=== PATIENT | female | born 1965 | race Caucasian/White ===

== ENCOUNTER → 2016-09-25 | Outpatient (CLI) | payer OTHER ==
--- NOTE | 2016-09-26 08:43 | MR ---
EXAMINATION TYPE: MR brain wo con DATE OF EXAM: 09/25/2016 7:09 PM COMPARISON: 06/06/2014 HISTORY: T1-weighted sagittal, T2, FLAIR, and diffusion axial, and T2 coronal coronal views of the brain are s ubmitted. There is no evidence of acute ischemia. The ventricles, basal cisterns, and sulci overlying the conv exities are consistent with the patient's age. There is no mass effect. No diagnostic evidence of demyelinating disease. No cerebellopontine angle mass. Within the anterior temporal fossa there is a fluid-filled mass measuring 2.4 x 3 cm compatible with an arachnoid cyst. There is mild anterior mass effect upon the temporal lobe. Sella turcica has a normal appearance. Craniocervical junction maintained. Changes of mild chronic si nusitis noted. Abnormal signal involving the spenser suggestive of tiny areas of remote infarction. Central pontine mye linolysis less likely. Correlate clinically There is severe right-sided maxillary sinusitis. Moderate changes involving the ethmoid air cells. IMPRESSION: 1. Left anterior temporal fossa arachnoid cyst is slightly increased in size measuring 2.4 x 3 cm and previously measuring 2 x 3 cm. 2. Severe right maxillary and moderate ethmoidal sinusitis.
== END | disposition home or self-care (01) ==
LOC: RADMRIMAIN 17:39
PROVIDERS: ATTEND Family Medicine
DX: G93.0 Cerebral cysts (principal)
CPT/HCPCS: 70551

== ENCOUNTER → 2017-09-17 | Outpatient (CLI) | payer BC, OTHER ==
--- NOTE | 2017-09-19 09:45 | MR ---
EXAMINATION TYPE: MR lumbar spine wo con DATE OF EXAM: 09/17/2017 COMPARISON: NONE HISTORY: Radiculopathy, lumbar region CONTRAST: 0 mL intravenous Gadavist. TECHNIQUE: Multiplanar, multisequence images of the lumbar spine were acquired. FINDINGS: Cord terminates at the L1 level. Disc desiccation is throughout the lumbar spine. L5-S1: No significant disc bulge or disc herniation. No spinal canal stenosis. No foraminal stenosi s. Some mild disc space narrowing is present. Disc desiccation is present.. L4-L5: There is left paracentral focal bulging with moderate anterior thecal sac compression. Facet h ypertrophy is present with posterior lateral thecal sac compression from ligamentum flavum laxity. No spinal canal stenosis is present. Moderate bilateral foraminal narrowing is present greater on the l eft. L3-L4: There is a large central disc herniation with moderate anterior thecal sac compression. No AP spinal canal stenosis present. Neural foramen are patent. L2-L3: Broad-based disc bulge has moderate anterior thecal sac flattening. No AP spinal canal stenosi s or neural foraminal stenosis is present. L1-L2: No significant disc bulge or disc herniation. No spinal canal stenosis. No foraminal stenosi s. T12-L1: No significant disc bulge or disc herniation. No spinal canal stenosis. No foraminal stenos is. . IMPRESSION: 1. Bilateral foraminal narrowing L4-5 secondary to facet hypertrophy. 2. Facet hypertrophy, ligamentum flavum laxity and focal left paracentral bulging L4-5 are contributi ng to spinal canal narrowing. 3. Large central disc herniation with moderate anterior thecal sac compression L3-4. No stenosis is p resent at this level.
== END ==
LOC: RADMRIMAIN 11:09
PROVIDERS: ATTEND Internal Medicine Rheumatology
DX: M48.07 Spinal stenosis, lumbosacral region (principal); M99.73 Connective tissue and disc stenosis of intervertebral foramina of lumbar region; M51.16 Intervertebral disc disorders with radiculopathy, lumbar region
CPT/HCPCS: 72148

== ENCOUNTER → 2017-11-17 | Outpatient (CLI) | payer BC, OTHER ==
--- NOTE | 2017-11-17 07:59 | MR ---
EXAMINATION TYPE: MR brain wo/w con DATE OF EXAM: 11/17/2017 7:38 AM COMPARISON: September 25, 2016 HISTORY: Headache CONTRAST: Patient received 6.5 mL intravenous Gadavist gadolinium contrast. Multiplanar and multispin-echo imaging of the brain was performed . Pre and post contrast enhanced i mages are obtained. The ventricles, basal cisterns and sulci overlying the cerebral convexities are not enlarged. There is evidence of minimal periventricular white matter ischemic demyelination. Remote deep white matter insults are also noted. No acute edema is seen on diffusion weighted imaging. Within the anterior aspect of the middle cranial fossa on the left there is an arachnoid cyst measuri ng 3.0 x 2.0 cm. No significant interval change is noted. Mild mass effect upon the left temporal hor n are noted. There is no evidence for midline shift or mass effect. Acute intracranial hemorrhage or extra-axial collection is not evident. No enhancing lesions are seen. Moderately severe maxillary and ethmoidal chronic sinusitis. Mild right frontal chronic sinusitis. Ma stoid air cells well-aerated. IMPRESSION: 1. Stable arachnoid cyst left anterior temporal fossa. 2. Chronic sinusitis.
== END | disposition home or self-care (01) ==
LOC: RADMRIMAIN 06:41
PROVIDERS: ATTEND Psychiatry & Neurology Neurology
DX: G93.0 Cerebral cysts (principal); J32.8 Other chronic sinusitis
CPT/HCPCS: 70553; A9581

== ENCOUNTER → 2018-06-09 | Outpatient (CLI) | payer BC, OTHER ==
--- NOTE | 2018-06-09 14:41 | US ---
EXAMINATION TYPE: US carotid duplex BILAT DATE OF EXAM: 06/09/2018 COMPARISON: NONE CLINICAL HISTORY: Z72.0 Tobacco use,Z87.898 Hx of vertigo,E78.2 Mixe. EXAM MEASUREMENTS: RIGHT: Peak Systolic Velocity (PSV) cm/sec ----- Right CCA: 57.9 ----- Right ICA: 79.5 ----- Right ECA: 133.7 ICA/CCA ratio: 1.4 RIGHT: End Diastole cm/sec ----- Right CCA: 23.7 ----- Right ICA: 36.6 ----- Right ECA: 22.4 LEFT: Peak Systolic Velocity (PSV) cm/sec ----- Left CCA: 69.2 ----- Left ICA: 66.3 ----- Left ECA: 109.1 ICA/CCA ratio: 1.0 LEFT: End Diastole cm/sec ----- Left CCA: 27.3 ----- Left ICA: 24.5 ----- Left ECA: 22.4 VERTEBRALS (direction of flow): Right Vertebral: Antegrade Left Vertebral: Antegrade Rhythm: Normal IMPRESSION: Mild degree of grayscale atheromatous plaquing with no sonographically evident hemodynam ically significant stenosis within either visualized carotid arterial system.
== END ==
LOC: RADUSWWP 13:37
PROVIDERS: ATTEND Family Medicine
DX: I65.29 Occlusion and stenosis of unspecified carotid artery (principal); E78.2 Mixed hyperlipidemia; Z72.0 Tobacco use; Z87.898 Personal history of other specified conditions
CPT/HCPCS: 93880

== ENCOUNTER 2019-08-06 11:38 | Emergency (ER) | payer BC, OTHER ==
[2019-08-06] MEDS ORDERED: KETOROLAC 30 MG/ML 1 ML VIAL IM STA (12:10)
--- NOTE | 2019-08-06 12:38 | XR ---
EXAMINATION TYPE: XR ribs LT w pa chest xray DATE OF EXAM: 08/06/2019 CLINICAL HISTORY: Chest and left rib pain after leaning over a fence. TECHNIQUE: Single frontal view of the chest is obtained. 2 views of the left ribs were also obtained. COMPARISON: 07/12/2016 FINDINGS: There is no focal air space opacity, pleural effusion, or pneumothorax seen. The cardiac silhouette size is within normal limits. No acute displaced left rib fracture or healed fracture defo rmity seen. The osseous structures are intact. IMPRESSION: No acute cardiopulmonary process. No acute displaced left rib fracture.
[2019-08-06] MEDS ORDERED: CYCLOBENZAPRINE 10MG STARTER 3 TAB BTL PO STA (12:46)
--- NOTE | 2019-08-06 12:47 | ED ---
Chest Pain HPI - General Chief Complaint: Chest Pain Stated Complaint: Poss Broken rib Time Seen by Provider: 08/06/19 12:05 Source: patient Mode of arrival: ambulatory Limitations: no limitations - History of Present Illness Initial Comments: patient is a 54-year-old female presenting to the emergency department with chief complaint of chest wall pain. Patient reports she bent over a wooden leyva as she was trying to feed the animals.she reports putting all her weight especially around the chest area. Patient reports she felt "something happened" causing a sudden onset of pain. She reports the pain is exacerbated with full inspiration, left and right rotation forward flexion and extension. Patient states the pain is not cardiac in nature. Patient denies taking medication to alleviate the symptoms.patient denies shortness of breath. - Related Data Home Medications Medication Instructions Recorded Confirmed PARoxetine [Paxil] 20 mg PO DAILY 09/23/14 07/12/16 Simvastatin [Zocor] 20 mg PO HS 09/23/14 07/12/16 Ergocalciferol (Vitamin D2) 50,000 unit PO TH 07/12/16 07/12/16 [Drisdol] Omeprazole [PriLOSEC] 20 mg PO AC-BID 07/12/16 07/12/16 Previous Rx's Medication Instructions Recorded Aspirin 81 mg PO DAILY #1 chewable 07/13/16 Nicotine 14Mg/24Hr Patch [Habitrol] 1 patch TRANSDERM DAILY #14 patch 07/13/16 Nitroglycerin Sl Tabs [Nitrostat] 0.4 mg SUBLINGUAL Q5M PRN #25 tab 07/13/16 Allergies Allergy/AdvReac Type Severity Reaction Status Date / Time cephalexin [From Keflex] Allergy Rash/Hives Verified 08/06/19 11:48 clarithromycin [From Biaxin] Allergy Rash/Hives Verified 07/12/16 14:50 sulfamethoxazole Allergy Rash/Hives Verified 07/12/16 14:50 [From Bactrim] trimethoprim [From Bactrim] Allergy Rash/Hives Verified 07/12/16 14:50 Review of Systems ROS Statement: Those systems with pertinent positive or pertinent negative responses have been documented in the HPI. ROS Other: All systems not noted in ROS Statement are negative. Past Medical History Past Medical History: Fibromyalgia, GERD/Reflux, Hyperlipidemia Additional Past Medical History / Comment(s): chronic back pain, migraines, vertigo in the past, hiatal hernia, sigmoid polyp-benign. History of Any Multi-Drug Resistant Organisms: None Reported Past Surgical History: No Surgical Hx Reported Additional Past Surgical History / Comment(s): 09/2014 EGD with bx/colonoscopy with bx Past Anesthesia/Blood Transfusion Reactions: No Reported Reaction Additional Past Anesthesia/Blood Transfusion Reaction / Comment(s): No Anesthesia Past Psychological History: Anxiety Smoking Status: Current every day smoker Past Alcohol Use History: None Reported Past Drug Use History: None Reported - Past Family History Mother Family Medical History: CVA/TIA, Hypertension Father Family Medical History: Hyperlipidemia, Hypertension General Exam Limitations: no limitations General appearance: alert, in no apparent distress Head exam: Present: atraumatic, normocephalic, normal inspection Eye exam: Present: normal appearance Pupils: Present: normal accommodation ENT exam: Present: normal exam, mucous membranes moist Neck exam: Present: normal inspection Respiratory exam: Present: normal lung sounds bilaterally, chest wall tenderness (chest wall tenderness near the left lower side of the chest. No signs of ecchymosis, bruising or swelling.) Cardiovascular Exam: Present: regular rate, normal rhythm, normal heart sounds Extremities exam: Present: normal inspection Back exam: Present: normal inspection, full ROM Neurological exam: Present: alert, oriented X3 Psychiatric exam: Present: normal affect, normal mood Skin exam: Present: warm, dry, intact, normal color Course Vital Signs 08/06/19 08/06/19 11:48 13:00 Temperature 98.2 F 98 F Pulse Rate 75 80 Respiratory 20 18 Rate Blood Pressure 133/64 124/72 O2 Sat by Pulse 96 99 Oximetry Chest Pain MDM - Differential Diagnosis Chest Wall Syndrome - MDM patient is a 54-year-old female presenting to emergency Department with a chief complaint of chest wall pain. Patient injured herself that she try to bend over a wooden leyva. Physical examination shows chest wall tenderness near the left lower side of the chest. No signs of ecchymosis, bruising or swelling.patient given Toradol. X-rays were obtained showing no signs of rib fractures. I suspect the patient has suffered muscle strain on the left sided chest wall. Patient advised to alternate between Tylenol and ibuprofen for pain control. Patient given Flexeril.he was advised about the possible side effects of medication. Strict return parameters were thoroughly discussed with patient was understanding and agreeable. Patient asked to follow up primary care. Case discussed with physician. Disposition Clinical Impression: Chest wall muscle strain Disposition: HOME SELF-CARE Condition: Stable Instructions (If sedation given, give patient instructions): Chest Pain (ED) Additional Instructions: alternate between Tylenol and ibuprofen for pain control. Please take prescribed medication as directed. Please return to emergency department if symptoms worsen. Is patient prescribed a controlled substance at d/c from ED?: No Referrals: Karen Celeste MD [Primary Care Provider] - 1-2 days Time of Disposition: 12:46
[2019-08-06 13:01] VITALS: BP 124/72; PULSE 80; RESP 18; TEMP 98
== END 2019-08-06 13:01 | disposition home or self-care (01) ==
LOC: EC 11:38
DX: S29.011A Strain of muscle and tendon of front wall of thorax, initial encounter (principal); E78.5 Hyperlipidemia, unspecified; F41.9 Anxiety disorder, unspecified; K21.9 Gastro-esophageal reflux disease without esophagitis; F17.200 Nicotine dependence, unspecified, uncomplicated; Z79.899 Other long term (current) drug therapy; Z88.1 Allergy status to other antibiotic agents; Z88.2 Allergy status to sulfonamides; X58.XXXA Exposure to other specified factors, initial encounter
CPT/HCPCS: 71101; 99283; 96372; J1885

== ENCOUNTER → 2020-07-05 | Outpatient (CLI) | payer OTHER ==
--- NOTE | 2020-07-05 13:28 | XR ---
EXAMINATION TYPE: XR chest 2V DATE OF EXAM: 07/05/2020 COMPARISON: 08/06/2019 HISTORY: 55-year-old female atypical chest pain TECHNIQUE: Frontal and lateral views FINDINGS: The cardiomediastinal silhouette, aorta, and pulmonary vasculature are within normal limits. Lungs an d pleural spaces are clear. IMPRESSION: No acute cardiopulmonary process.
== END | disposition home or self-care (01) ==
LOC: RADXRMAIN 13:08
PROVIDERS: ATTEND Family Medicine
DX: R07.89 Other chest pain (principal)
CPT/HCPCS: 71046

== ENCOUNTER → 2020-07-08 | Outpatient (CLI) | payer OTHER ==
--- NOTE | 2020-07-09 14:11 | MR ---
EXAMINATION TYPE: MR brain wo/w con DATE OF EXAM: 07/08/2020 COMPARISON: MR brain 11/17/2017 HISTORY: Arachnoid Cyst / Worsening Headaches TECHNIQUE: Multiplanar, multisequence images of the brain and brainstem is performed without and with IV contras t, utilizing 6 mL intravenous Gadavist . FINDINGS: Diffusion weighted images demonstrate no evidence of a recent infarct or other diffusion ab normality. There is no interval change in the CSF collection, the focus of cerebral spinal fluid sig nal anterior to the temporal lobe on the left shows a stable appearance. Scattered hyperintensities o n inversion recovery T2-weighted sequences present within the white matter, approximately 5 lesions, increased signal also noted within the spenser as on prior. The ventricular system and cisternal spaces are normal in size and appearance. The brain volume is age appropriate. Midline structures demonstrate normal morphology. The craniocervical junction appears within normal limits. Post contrast images demonstrate serpiginous focus of enhancement along the posterior pariet al lobe which is stable, prominent draining vein is likely and is unchanged. The dural venous sinuses appear patent. The visualized sinuses are remarkable for mucosal thickening within the maxillary sin uses and the globes are intact. Extensive degenerative disc changes are noted in the cervical spine. IMPRESSION: Nonspecific white matter demyelination could be due to hypertension, migraine headaches, vasculitis, multiple sclerosis felt to be less likely. Additional findings above, arachnoid cyst is s table
== END | disposition home or self-care (01) ==
LOC: RADMRIMAIN 08:37
PROVIDERS: ATTEND Family Medicine
DX: G37.8 Other specified demyelinating diseases of central nervous system (principal); G93.0 Cerebral cysts; G93.89 Other specified disorders of brain; R93.0 Abnormal findings on diagnostic imaging of skull and head, not elsewhere classified
CPT/HCPCS: 70553; A9585

== ENCOUNTER → 2020-08-04 | Outpatient (CLI) | payer OTHER ==
[2020-08-04 14:36] LABS: HCT 41.3 % (34.0-46.0); HGB 13.1 gm/dL (11.4-16.0); MCH 26.1 pg (25.0-35.0); MCHC 31.6 g/dL (31.0-37.0); MCV 82.6 fL (80.0-100.0); Platelet Count 428 k/uL (150-450); RDW 15.4 % (11.5-15.5); WBC 12.3 k/uL (3.8-10.6)
[2020-08-04 14:41] LABS: Potassium 4.9 mmol/L (3.5-5.1)
== END | disposition home or self-care (01) ==
LOC: LABPAT 13:17
PROVIDERS: ATTEND Internal Medicine Interventional Cardiology
DX: Z01.818 Encounter for other preprocedural examination (principal); R07.9 Chest pain, unspecified
CPT/HCPCS: 36415; 80051; 82565; 84520; 85027

== ENCOUNTER → 2020-09-06 | Outpatient (CLI) | payer MEDICARE, OTHER ==
--- NOTE | 2020-09-07 11:35 | MM ---
Reason for exam: screening (asymptomatic). Last mammogram was performed 4 years and 3 months ago. History: Patient is postmenopausal. Physical Findings: A clinical breast exam by your physician is recommended on an annual basis and results should be correlated with mammographic findings. MG Screening Mammo w CAD Bilateral CC and MLO view(s) were taken. Prior study comparison: June 19, 2016, right breast MG work up mamm w CAD RT. June 03, 2016, bilateral MG screening mammo w CAD. There are scattered fibroglandular densities. There are benign appearing round calcifications bilaterally. There is no discrete abnormality. ASSESSMENT: Benign, BI-RAD 2 RECOMMENDATION: Routine screening mammogram of both breasts in 1 year.
== END | disposition home or self-care (01) ==
LOC: RADMAMWWP 08:13
PROVIDERS: ATTEND Family Medicine
DX: Z12.31 Encounter for screening mammogram for malignant neoplasm of breast (principal)
CPT/HCPCS: 77067

== ENCOUNTER → 2021-01-02 | Outpatient (CLI) | payer MEDICARE, OTHER ==
[2021-01-03 00:36] LABS: African American GFR (CKD) 64.5 (60.0-200.0); Anion Gap 8.5 mmol/L (4.00-12.00); BUN/Creat Ratio 17.27 Ratio (12.00-20.00); Calcium 9.8 mg/dL (8.7-10.3); Carbon Dioxide 24.5 mmol/L (21.6-31.8); Non-African American GFR(CKD) 55.7 (60.0-200.0); Potassium 4.4 mmol/L (3.5-5.5)
== END | disposition home or self-care (01) ==
LOC: LABWHC1 13:39
PROVIDERS: ATTEND Nurse Practitioner Adult Health
DX: I10 Essential (primary) hypertension (principal)
CPT/HCPCS: 36415; 80048

== ENCOUNTER 2021-03-06 17:38 | Emergency (ER) | payer MEDICARE, OTHER ==
[2021-03-06 17:57] VITALS: BP 125/57; PULSE 96; RESP 16; TEMP 97.5
[2021-03-06] MEDS ORDERED: HYDROmorphone 1 MG/ML 1 ML SYRINGE IM STA (18:38)
[2021-03-06] MEDS ORDERED: ORPHENADRINE 30 MG/ML 2 ML VIAL IM STA (18:38)
--- NOTE | 2021-03-06 18:43 | ED ---
Back Pain HPI - General Chief Complaint: Back Pain/Injury Stated Complaint: Lower Back/Leg Pain Source: patient, RN notes reviewed, old records reviewed Limitations: no limitations - History of Present Illness Initial Comments: 56-year-old female, oriented 4, patient presents to the emergency room with complaints of low back pain that radiates down both buttocks and the back of both legs. Patient states this is been ongoing and chronic since at least 2018. She was directed to follow up with a neurologist at the earliest appointment is 2 weeks from now and she cannot wait that long. She states that she is able to ambulate but it is worse with walking. She states that the pain is shooting and it is 10 out of 10. She denies any injuries, no fevers, no incontinence of urine or bowel and no saddle anesthesia. Patient states she is a nonsmoker MD Complaint: back pain -: month(s) (2) Similar Symptoms Previously: Yes Radiation: buttocks, left leg, right leg Severity scale (1-10): 10 Quality: other Consistency: constant (Shooting) Improves With: none Worsens With: movement, walking Context: unknown Associated Symptoms: denies other symptoms - Related Data Home Medications Medication Instructions Recorded Confirmed PARoxetine [Paxil] 20 mg PO DAILY 09/23/14 07/12/16 Simvastatin [Zocor] 20 mg PO HS 09/23/14 07/12/16 Ergocalciferol (Vitamin D2) 50,000 unit PO TH 07/12/16 07/12/16 [Drisdol] Omeprazole [PriLOSEC] 20 mg PO AC-BID 07/12/16 07/12/16 Previous Rx's Medication Instructions Recorded Aspirin 81 mg PO DAILY #1 chewable 07/13/16 Nicotine 14Mg/24Hr Patch [Habitrol] 1 patch TRANSDERM DAILY #14 patch 07/13/16 Nitroglycerin Sl Tabs [Nitrostat] 0.4 mg SUBLINGUAL Q5M PRN #25 tab 07/13/16 Allergies Allergy/AdvReac Type Severity Reaction Status Date / Time cephalexin [From Keflex] Allergy Rash/Hives Verified 03/06/21 17:55 clarithromycin [From Biaxin] Allergy Rash/Hives Verified 03/06/21 17:55 sulfamethoxazole Allergy Rash/Hives Verified 03/06/21 17:55 [From Bactrim] trimethoprim [From Bactrim] Allergy Rash/Hives Verified 03/06/21 17:55 Review of Systems ROS Statement: Those systems with pertinent positive or pertinent negative responses have been documented in the HPI. ROS Other: All systems not noted in ROS Statement are negative. Past Medical History Past Medical History: Fibromyalgia, GERD/Reflux, Hyperlipidemia Additional Past Medical History / Comment(s): chronic back pain, migraines, vertigo in the past, hiatal hernia, sigmoid polyp-benign. History of Any Multi-Drug Resistant Organisms: None Reported Past Surgical History: No Surgical Hx Reported Additional Past Surgical History / Comment(s): 09/2014 EGD with bx/colonoscopy with bx Past Anesthesia/Blood Transfusion Reactions: No Reported Reaction Additional Past Anesthesia/Blood Transfusion Reaction / Comment(s): No Anesthesia Past Psychological History: Anxiety Past Alcohol Use History: None Reported Past Drug Use History: None Reported - Past Family History Mother Family Medical History: CVA/TIA, Hypertension Father Family Medical History: Hyperlipidemia, Hypertension General Exam Limitations: no limitations General appearance: alert, in no apparent distress Head exam: Present: atraumatic, normocephalic, normal inspection Eye exam: Present: normal appearance, PERRL, EOMI. Absent: scleral icterus, conjunctival injection, periorbital swelling Pupils: Present: normal accommodation ENT exam: Present: normal exam, normal oropharynx, mucous membranes moist Neck exam: Present: normal inspection, full ROM. Absent: tenderness, meningismus, lymphadenopathy, thyromegaly Respiratory exam: Present: normal lung sounds bilaterally. Absent: respiratory distress, wheezes, rales, rhonchi, stridor, chest wall tenderness, accessory muscle use, decreased breath sounds, prolonged expiratory Cardiovascular Exam: Present: regular rate, normal rhythm, normal heart sounds. Absent: systolic murmur, diastolic murmur, rubs, gallop, clicks GI/Abdominal exam: Present: soft, normal bowel sounds. Absent: distended, tenderness, guarding, rebound, rigid Extremities exam: Present: normal inspection, full ROM, normal capillary refill. Absent: tenderness, pedal edema, joint swelling, calf tenderness Back exam: Present: normal inspection, tenderness, paraspinal tenderness. Absent: CVA tenderness (R) (Lumbar), CVA tenderness (L), muscle spasm, vertebral tenderness, rash noted Expanded Back exam: Absent: saddle anesthesia Back exam: Sciatic Notch Tenderness: Left, Right, Negative Straight Leg Raising: Left, Right Neurological exam: Present: alert, oriented X3, CN II-XII intact, normal gait Psychiatric exam: Present: normal affect, normal mood. Absent: anxious, flat affect, manic Skin exam: Present: warm, dry, intact, normal color. Absent: rash, cyanosis, diaphoretic, erythema, petechiae, pallor, mottled Course Vital Signs 03/06/21 17:55 Temperature 97.5 F L Pulse Rate 96 Respiratory 16 Rate Blood Pressure 125/57 O2 Sat by Pulse 96 Oximetry Medical Decision Making - Medical Decision Making Patient is able to ambulate in the room with a steady gait, states that she has had this in the past. She denies any fevers, urinary and bowel incontinence. No saddle anesthesia. No trauma. She did get relief with the Norflex and Dilaudid. She is ready to be discharged home. She will be given a referral to orthopedics. Case discussed with Dr. Salinas Disposition Clinical Impression: Back pain Disposition: HOME SELF-CARE Condition: Good Instructions (If sedation given, give patient instructions): Chronic Back Pain (DC) Additional Instructions: Follow-up with the primary care doctor as scheduled. Return if worsening symptoms including fever, incontinence of bowel or bladder or inability to ambulate. Is patient prescribed a controlled substance at d/c from ED?: No Referrals: Karen Celeste MD [Primary Care Provider] - 1-2 days Edwar Schmitt MD [STAFF PHYSICIAN] - 1-2 days Time of Disposition: 19:17
== END 2021-03-06 19:28 | disposition home or self-care (01) ==
LOC: EC 17:38
DX: M54.5 Low back pain (principal); M79.7 Fibromyalgia; K21.9 Gastro-esophageal reflux disease without esophagitis; E78.5 Hyperlipidemia, unspecified
CPT/HCPCS: 96372; 99283

== ENCOUNTER → 2021-05-31 | Outpatient (CLI) | payer MEDICARE, OTHER ==
[2021-05-31 23:12] LABS: Basophils # (A) 0.08 X 10*3/uL (0.00-0.10); Basophils % (A) 0.7 %; Eosinophils # (A) 0.25 X 10*3/uL (0.04-0.35); Eosinophils % (A) 2.1 %; HCT 38.2 % (37.2-46.3); HGB 12.3 g/dL (12.0-15.0); Lymphocytes # (A) 3.82 X 10*3/uL (0.90-5.00); Lymphocytes % (A) 32.5 %; MCH 27.9 pg (27.0-32.0); MCHC 32.2 g/dL (32.0-37.0); MCV 86.6 fL (80.0-97.0); Mean Platelet Volume 9.9 fL (9.5-12.2); Monocytes # (A) 0.86 X 10*3/uL (0.20-1.00); Monocytes % (A) 7.3 %; Neutrophils % (A) 57.1 %; Platelet Count 434 X 10*3/uL (140-440); RBC 4.41 X 10*6/uL (4.10-5.20); RDW 15.4 % (11.5-14.5); WBC 11.74 X 10*3/uL (4.50-10.00)
[2021-06-01 05:46] LABS: ALT 10 U/L (8-44); AST 15 U/L (13-35); African American GFR (CKD) 60.1 (60.0-200.0); Albumin 4.3 g/dL (3.8-4.9); Albumin/Globulin Ratio 1.69 (1.60-3.17); Alkaline Phosphatase 80 U/L (41-126); BUN/Creat Ratio 12.93 Ratio (12.00-20.00); Calcium 10.1 mg/dL (8.7-10.3); Carbon Dioxide 20.5 mmol/L (21.6-31.8); Chloride 102 mmol/L (96-109); Globulin 2.6 g/dL (1.6-3.3); Glucose 90 mg/dL (70-110); Non-African American GFR(CKD) 51.9 (60.0-200.0); Sodium 138 mmol/L (135-145); Total Bilirubin <0.20 mg/dL (0.30-1.20); Total Protein 6.9 g/dL (6.2-8.2)
== END | disposition home or self-care (01) ==
LOC: LABWHC1 15:42
PROVIDERS: ATTEND Psychiatry & Neurology Neurology
DX: I10 Essential (primary) hypertension (principal); E55.9 Vitamin D deficiency, unspecified; E53.9 Vitamin B deficiency, unspecified; R42 Dizziness and giddiness; R51.9 Headache, unspecified
CPT/HCPCS: 36415; 80053; 82306; 82607; 83735; 84207; 85025

== ENCOUNTER → 2021-06-01 | Outpatient (CLI) | payer MEDICARE | END | disposition home or self-care (01) | LOC: LABWHC1 14:44 | PROVIDERS: ATTEND Psychiatry & Neurology Neurology | DX: I10 Essential (primary) hypertension (principal); E55.9 Vitamin D deficiency, unspecified; E53.9 Vitamin B deficiency, unspecified; R42 Dizziness and giddiness; R51.9 Headache, unspecified | CPT/HCPCS: 36415; 84207 ==

== ENCOUNTER 2021-06-05 15:31 | Emergency (ER) | payer MEDICARE, OTHER ==
[2021-06-05] MEDS ORDERED: MORPHINE SULFATE 4 MG/ML SYRINGE IVP STA (16:27)
[2021-06-05] MEDS ORDERED: MORPHINE SULFATE 4 MG/ML SYRINGE IM STA (16:45)
[2021-06-05] MEDS ORDERED: ACET/COD 300 MG/30 MG STARTER PACK 6 TAB BTL PO STA (16:55)
--- NOTE | 2021-06-05 16:56 | ED ---
Back Pain HPI - General Chief Complaint: Back Pain/Injury Stated Complaint: Back Pain Time Seen by Provider: 06/05/21 16:21 Source: patient, RN notes reviewed Limitations: no limitations - History of Present Illness Initial Comments: Patient is a 56-year-old female that presents to the emergency room complaining of chronic back pain. She notes she was seen by her neurologist to send her home with a 5 day course of prednisone. Patient notes that the prednisone is helped at all. Patient is here for symptom medic control. She denied any recent injury or trauma. She was otherwise well-appearing. She denied chest pain first breath headache nausea vomiting diarrhea constipation fever fatigue chills. - Related Data Home Medications Medication Instructions Recorded Confirmed PARoxetine [Paxil] 20 mg PO DAILY 09/23/14 07/12/16 Simvastatin [Zocor] 20 mg PO HS 09/23/14 07/12/16 Ergocalciferol (Vitamin D2) 50,000 unit PO TH 07/12/16 07/12/16 [Drisdol] Omeprazole [PriLOSEC] 20 mg PO AC-BID 07/12/16 07/12/16 Previous Rx's Medication Instructions Recorded Aspirin 81 mg PO DAILY #1 chewable 07/13/16 Nicotine 14Mg/24Hr Patch [Habitrol] 1 patch TRANSDERM DAILY #14 patch 07/13/16 Nitroglycerin Sl Tabs [Nitrostat] 0.4 mg SUBLINGUAL Q5M PRN #25 tab 07/13/16 Allergies Allergy/AdvReac Type Severity Reaction Status Date / Time cephalexin [From Keflex] Allergy Rash/Hives Verified 06/05/21 15:59 clarithromycin [From Biaxin] Allergy Rash/Hives Verified 06/05/21 15:59 sulfamethoxazole Allergy Rash/Hives Verified 06/05/21 15:59 [From Bactrim] trimethoprim [From Bactrim] Allergy Rash/Hives Verified 06/05/21 15:59 Review of Systems ROS Statement: Those systems with pertinent positive or pertinent negative responses have been documented in the HPI. ROS Other: All systems not noted in ROS Statement are negative. Past Medical History Past Medical History: Fibromyalgia, GERD/Reflux, Hyperlipidemia Additional Past Medical History / Comment(s): chronic back pain, migraines, vertigo in the past, hiatal hernia, sigmoid polyp-benign. History of Any Multi-Drug Resistant Organisms: None Reported Past Surgical History: No Surgical Hx Reported Additional Past Surgical History / Comment(s): 09/2014 EGD with bx/colonoscopy with bx Past Anesthesia/Blood Transfusion Reactions: No Reported Reaction Additional Past Anesthesia/Blood Transfusion Reaction / Comment(s): No Anesthesia Past Psychological History: Anxiety Smoking Status: Current every day smoker Past Alcohol Use History: None Reported Past Drug Use History: None Reported - Past Family History Mother Family Medical History: CVA/TIA, Hypertension Father Family Medical History: Hyperlipidemia, Hypertension General Exam Limitations: no limitations General appearance: alert, in no apparent distress Head exam: Present: atraumatic, normocephalic, normal inspection Eye exam: Present: normal appearance, PERRL, EOMI. Absent: scleral icterus, conjunctival injection, periorbital swelling ENT exam: Present: normal exam, mucous membranes moist Neck exam: Present: normal inspection Respiratory exam: Present: normal lung sounds bilaterally. Absent: respiratory distress, wheezes, rales, rhonchi, stridor Cardiovascular Exam: Present: regular rate, normal rhythm, normal heart sounds. Absent: systolic murmur, diastolic murmur, rubs, gallop, clicks Extremities exam: Present: normal inspection, full ROM, normal capillary refill. Absent: tenderness, pedal edema, joint swelling, calf tenderness Back exam: Present: normal inspection, tenderness (Lateral lower back) Neurological exam: Present: alert, oriented X3 Psychiatric exam: Present: normal affect, normal mood Skin exam: Present: warm, dry, intact, normal color. Absent: rash Course Vital Signs 06/05/21 15:57 Temperature 97.7 F Pulse Rate 62 Respiratory 20 Rate Blood Pressure 110/61 O2 Sat by Pulse 99 Oximetry Medical Decision Making - Medical Decision Making 56-year-old female with chronic back pain here for symptom medic control. 4 Milligrams of morphine ordered. Case discussed with Dr. Banuelos, patient can discharge home follow-up to neurologist and pain medicine specialist. Disposition Clinical Impression: Chronic back pain Disposition: HOME SELF-CARE Condition: Stable Instructions (If sedation given, give patient instructions): Acute Low Back Pain (ED) Additional Instructions: Please return to the Emergency Department if symptoms worsen or any other concerns. Follow-up with primary care in 1-2 days. Follow-up with the pain medicine specialist as needed. Follow-up with urologist as planned. Take prednisone as prescribed. Is patient prescribed a controlled substance at d/c from ED?: No Referrals: Karen Celeste MD [Primary Care Provider] - 1-2 days Time of Disposition: 16:56
[2021-06-05 17:06] VITALS: BP 107/61; PULSE 65; RESP 16; TEMP 97.8
== END 2021-06-05 17:04 | disposition home or self-care (01) ==
LOC: EC 15:31
DX: M54.9 Dorsalgia, unspecified (principal); G89.29 Other chronic pain; E78.5 Hyperlipidemia, unspecified; F41.9 Anxiety disorder, unspecified; F17.200 Nicotine dependence, unspecified, uncomplicated; G43.909 Migraine, unspecified, not intractable, without status migrainosus
CPT/HCPCS: 99283; 96372; J2270

== ENCOUNTER 2022-09-15 02:29 | Emergency (ER) | payer MEDICARE, OTHER ==
[2022-09-15 02:35] VITALS: RESP 18; TEMP 97.5
--- NOTE | 2022-09-15 02:49 | ED ---
Fall HPI - General Chief Complaint: Fall Stated Complaint: Fall, Left Knee Injury Time Seen by Provider: 09/15/22 02:36 Source: patient Mode of arrival: wheelchair - History of Present Illness Initial Comments: This patient is a 57-year-old woman who presents to have evaluation of left knee injury. The patient states that she tripped on uneven concrete and fell. She struck the anterior aspect of left knee on the concrete. Patient states that it was difficult to get up secondary to pain. She denies any other injury in the fall. MD Complaint: fall -: minutes(s) Fall From: standing When Fall Occurred: just prior to arrival Fall Witnessed: yes, by family Place Fall Occurred: street Loss of Consciousness: none Prolonged Down Time?: no Symptoms Prior to Fall: none Location - Extremities: Left: Knee Severity: moderate Quality: sharp Context: tripped/slipped Associated Symptoms: denies - Related Data Home Medications Medication Instructions Recorded Confirmed PARoxetine [Paxil] 20 mg PO DAILY 09/23/14 07/12/16 Simvastatin [Zocor] 20 mg PO HS 09/23/14 07/12/16 Ergocalciferol (Vitamin D2) 50,000 unit PO TH 07/12/16 07/12/16 [Drisdol] Omeprazole [PriLOSEC] 20 mg PO AC-BID 07/12/16 07/12/16 Previous Rx's Medication Instructions Recorded Aspirin 81 mg PO DAILY #1 chewable 07/13/16 Nicotine 14Mg/24Hr Patch [Habitrol] 1 patch TRANSDERM DAILY #14 patch 07/13/16 Nitroglycerin Sl Tabs [Nitrostat] 0.4 mg SUBLINGUAL Q5M PRN #25 tab 07/13/16 Lidocaine 5% Patch [Lidoderm] 1 patch TOPICAL DAILY 7 Days #7 06/05/21 patch traMADol HCl [Ultram] 50 mg PO Q6H PRN #20 tab 09/15/22 Allergies Allergy/AdvReac Type Severity Reaction Status Date / Time cephalexin [From Keflex] Allergy Rash/Hives Verified 06/05/21 15:59 clarithromycin [From Biaxin] Allergy Rash/Hives Verified 06/05/21 15:59 sulfamethoxazole Allergy Rash/Hives Verified 06/05/21 15:59 [From Bactrim] trimethoprim [From Bactrim] Allergy Rash/Hives Verified 06/05/21 15:59 Review of Systems ROS Statement: Those systems with pertinent positive or pertinent negative responses have been documented in the HPI. ROS Other: All systems not noted in ROS Statement are negative. Constitutional: Denies: weakness Respiratory: Denies: cough, dyspnea Cardiovascular: Denies: chest pain, syncope Gastrointestinal: Denies: abdominal pain Musculoskeletal: Reports: as per HPI, arthralgia. Denies: back pain Neurological: Denies: headache, weakness, confusion Past Medical History Past Medical History: Fibromyalgia, GERD/Reflux, Hyperlipidemia Additional Past Medical History / Comment(s): chronic back pain, migraines, vertigo in the past, hiatal hernia, sigmoid polyp-benign. History of Any Multi-Drug Resistant Organisms: None Reported Past Surgical History: No Surgical Hx Reported Additional Past Surgical History / Comment(s): 09/2014 EGD with bx/colonoscopy with bx Past Anesthesia/Blood Transfusion Reactions: No Reported Reaction Additional Past Anesthesia/Blood Transfusion Reaction / Comment(s): No Anesthesia Past Psychological History: Anxiety Smoking Status: Current every day smoker Past Alcohol Use History: None Reported Past Drug Use History: None Reported - Past Family History Mother Family Medical History: CVA/TIA, Hypertension Father Family Medical History: Hyperlipidemia, Hypertension General Exam Limitations: no limitations General appearance: alert, in no apparent distress Head exam: Present: atraumatic, normocephalic Eye exam: Present: normal appearance. Absent: scleral icterus, conjunctival injection Neck exam: Present: normal inspection, full ROM. Absent: tenderness Respiratory exam: Present: normal lung sounds bilaterally. Absent: respiratory distress, wheezes, rales, rhonchi, stridor, chest wall tenderness, accessory muscle use Cardiovascular Exam: Present: regular rate, normal rhythm, normal heart sounds. Absent: systolic murmur, diastolic murmur, rubs, gallop GI/Abdominal exam: Present: soft. Absent: tenderness Extremities exam: Present: tenderness, other (Contusion anterior aspect left knee. There is bony tenderness but no evident deformity.). Absent: full ROM Left Hip exam: Present: normal inspection, full ROM. Absent: tenderness, swelling Upper Leg exam: Present: normal inspection, full ROM. Absent: tenderness, swelling Knee exam: Present: tenderness, ecchymosis. Absent: full ROM, deformity, crepitus, dislocation, erythema, effusion Lower Leg exam: Present: normal inspection. Absent: tenderness, swelling, abrasion Ankle exam: Present: normal inspection, full ROM. Absent: tenderness, swelling Foot/Toe exam: Present: normal inspection, full ROM. Absent: tenderness, swelling Neurovascular tendon exam: Present: no vascular compromise. Absent: pulse deficit, abnormal cap refill, motor deficit, sensory deficit, tendon deficit Back exam: Present: normal inspection. Absent: CVA tenderness (R), CVA tenderness (L), vertebral tenderness Neurological exam: Present: alert. Absent: motor sensory deficit Skin exam: Present: warm, dry, intact, normal color. Absent: rash Course Vital Signs 09/15/22 09/15/22 02:30 04:22 Temperature 97.5 F L Pulse Rate 75 79 Respiratory 18 18 Rate Blood Pressure 163/100 151/99 O2 Sat by Pulse 98 99 Oximetry Medical Decision Making - Medical Decision Making This patient is a 57-year-old woman here to have evaluation of knee pain after low mechanism of injury fall. The patient had knee x-rays which I interpreted as not showing acute only injury. Further care and follow-up as well as return parameters are discussed Was pt. sent in by a medical professional or institution? @ -No Did you speak to anyone other than the patient for history? @ -Partner Did you review nursing and triage notes? @ -[agree Were old charts reviewed? @ -[No Differential Diagnosis? @ - Differential diagnosis of knee pain includes but not limited to: Acute traumatic injury, fracture, contusion, sprain, vascular injury, neurologic inj ury EKG interpreted by me (3pts min.)? @ -[none] X-rays interpreted by me (1pt min.)? @ -[See chart CT interpreted by me (1pt min.)? @ -[none U/S interpreted by me (1pt. min.)? @ -[none] What testing was considered but not performed? (CT, X-rays, U/S, labs)? Why? @ [None What meds were considered but not given? Why? @ -[none] Did you discuss the management of the patient with other professionals? @ -[No Did you reconcile home meds? @ -[no Was smoking cessation discussed for >3mins.? @ -[none] Was critical care preformed (if so, how long)? @ -[none] Were there social determinants of health that impacted care today? How? (Homelessness, low income, unemployed, alcoholism, drug addiction, transportation, low edu. Level, literacy, decrease access to med. care, intermediate, rehab)? @ -[No Was there de-escalation of care discussed even if they declined? (Discuss DNR or withdrawal of care, Hospice)? @ -[No What co-morbidities impacted this encounter? (DM, HTN, Smoking, COPD, CAD, Cancer, CVA, Hep., AIDS, mental health diagnosis, sleep apnea, morbid obesity)? @ -[None Was patient admitted / discharged? @ -[Discharged Undiagnosed new problem with uncertain prognosis? @ -[none] Drug Therapy requiring intensive monitoring for toxicity (Heparin, Nitro, Insulin, Cardizem)? @ -[none] Were any procedures done? @ -[none] Diagnosis/symptom? @ -[1. Acute knee contusion Acute, or Chronic, or Acute on Chronic? @ -[Acute Uncomplicated (without systemic symptoms) or Complicated (systemic symptoms)? @ -[uncomplicated Side effects of treatment? @ -[none] Exacerbation, Progression, or Severe Exacerbation] @ -[no] Poses a threat to life or bodily function? @ -[No Disposition Clinical Impression: Fall, Contusion of left knee Disposition: HOME SELF-CARE Condition: Good Instructions (If sedation given, give patient instructions): Contusion in Adults (ED) Prescriptions: traMADol HCl [Ultram] 50 mg PO Q6H PRN #20 tab PRN Reason: Pain Is patient prescribed a controlled substance at d/c from ED?: Yes When asked, does pt state using other controlled substances?: No If prescribed controlled substance>3 days was MAPS reviewed?: Prescribed <3 Days If opioid is for acute pain is fill amount 7 days or less?: Yes If Rx opioid, was Start Talking consent form obtained?: Yes Referrals: Karen Celeste MD [Primary Care Provider] - 1-2 days
--- NOTE | 2022-09-15 04:03 | XR ---
EXAMINATION TYPE: XR knee complete LT DATE OF EXAM: 09/15/2022 COMPARISON: 06/15/2014 HISTORY: Pain TECHNIQUE: 3 views FINDINGS: There is no evidence of fracture nor dislocation. Joint spaces are normal. No evidence of k nee joint effusion. No pathologic calcification. IMPRESSION: Negative left knee exam. No change.
[2022-09-15 04:23] VITALS: BP 151/99; PULSE 79
== END 2022-09-15 04:25 | disposition home or self-care (01) ==
LOC: EC 02:29
DX: S80.02XA Contusion of left knee, initial encounter (principal); K21.9 Gastro-esophageal reflux disease without esophagitis; E78.5 Hyperlipidemia, unspecified; F41.9 Anxiety disorder, unspecified; F17.200 Nicotine dependence, unspecified, uncomplicated; Z79.899 Other long term (current) drug therapy; Z88.1 Allergy status to other antibiotic agents; Z88.2 Allergy status to sulfonamides; W01.198A Fall on same level from slipping, tripping and stumbling with subsequent striking against other object, initial encounter; Y92.410 Unspecified street and highway as the place of occurrence of the external cause
CPT/HCPCS: 99284

== ENCOUNTER → 2024-01-06 | Outpatient (CLI) | payer MEDICARE ==
--- NOTE | 2024-01-06 13:44 | CTL ---
EXAMINATION TYPE: CT Low Dose Lung DATE OF EXAM ORDERED: 01/06/2024 COMPARISON: None HISTORY: . Low Dose CT Lung Screening CT DLP: [address] CTDI: 1.9 mGy IV CONTRAST USED: None. SCREENING VISIT: First visit COMPARISON: None. TECHNIQUE: Low dose computed tomography scan was performed through the chest at 1 millimeter thick se ctions and reconstructed images in the coronal plane at [address] DIAGNOSTIC QUALITY: Satisfactory FINDINGS: LUNG NODULES: Not presentLeft lung: no nodules identified.Right lung: no nodules identified. LUNGS: COPD: Severity: Mild Fibrosis: Severity:None Lymph nodes: None Other findings: None RIGHT PLEURAL SPACE: Effusion: None Calcification: None Thickening: None Pneumothorax: None LEFT PLEURAL SPACE: Effusion: None Calcification: None Thickening: None Pneumothorax: None HEART: Heart Size: Mildly enlarged Coronary calcification: Mild Pericardial effusion: None OTHER FINDINGS: Upper abdomen: Moderate fixed hiatal hernia. Bony thorax: Degenerative changes Supraclavicular region: No significant abnormalityOther: No significant abnormalityI IMPRESSION: No suspicious nodularity greater than [address] FOLLOW UP [address] CHEST RECOMMENDATION: Follow-up screening in one year CT LUNG RAD: LUNG RAD CATEGORY 1 negative
--- NOTE | 2024-01-07 18:59 | MM ---
Reason for Exam: Screening (asymptomatic). Last mammogram was performed 3 year(s) and 4 month(s) ago. Patient History: Menarche at age 13. First Full-Term at age 16. Postmenopausal. Risk Values: Na 5 year model risk: 0.6%. NCI Lifetime model risk: 3.4%. Prior Study Comparison: 06/03/2016 Bilateral Screening Mammogram, [facility]. 06/19/2016 Right Diagnostic Mammogram, [facility]. 09/06/2020 Bilateral Screening Mammogram, [facility]. Tissue Density: There are scattered areas of fibroglandular density. Findings: Analyzed By CAD. There is no suspicious group of microcalcifications or new suspicious mass in either breast. Overall Assessment: Negative, BI-RAD 1 Management: Screening Mammogram of both breasts in 1 year. . Patient should continue monthly self-breast exams. A clinical breast exam by your physician is recommended on an annual basis. This exam should not preclude additional follow-up of suspicious palpable abnormalities. Note on Na scores and lifetime risk: 1. A Na score greater than 3% is considered moderate risk. If this is the case, consider specialist referral to assess eligibility for a risk reducing agent. 2. If overall lifetime risk for the development of breast cancer is 20% or higher, the patient may qualify for future screening with alternating mammogram and breast MRI. Electronically signed and approved by: Gemma Raines M.D. Radiologist
== END | disposition home or self-care (01) ==
LOC: RADMAMWWP 12:27
PROVIDERS: ATTEND Family Medicine
DX: Z12.31 Encounter for screening mammogram for malignant neoplasm of breast (principal); Z12.2 Encounter for screening for malignant neoplasm of respiratory organs; F17.210 Nicotine dependence, cigarettes, uncomplicated
CPT/HCPCS: 71271; 77067

== ENCOUNTER → 2024-04-09 | Outpatient (CLI) | payer MEDICARE ==
--- NOTE | 2024-05-10 13:51 | XR ---
Patient: Paulette Sharma Ordering Physician: Unknown, Unknown ID: [id number] Phone, Pager: Phone: N/A Pager: N/A : 1965 Age/Gender: 59Y, F Primary Location: N/A Procedure: XR femur RT Study Date: 04/09/2024 7:26:00 AM EXAMINATION TYPE: XR femur RT DATE OF EXAM: 04/18/2024 12:51 PM CLINICAL INDICATION: Pain COMPARISON: None TECHNIQUE: XR femur RT examined in Frontal and lateral projections. FINDINGS: No evidence of acute osseous pathology, joint dislocation, or soft tissue swelling. Mild o steophyte formations of the superior acetabulum. Mild joint space narrowing. IMPRESSION: 1. No acute osseous pathology. 2. Mild degeneration changes of the hip.
--- NOTE | 2024-05-10 13:52 | XR ---
Patient: Paulette Sharma Ordering Physician: Unknown, Unknown ID: [id number] Phone, Pager: Phone: N/A Pager: N/A : 1965 Age/Gender: 59Y, F Primary Location: N/A Procedure: XR sacroiliac join t comp BILAT Study Date: 04/09/2024 7:31:00 AM EXAMINATION TYPE: XR sacroiliac joint comp BILAT DATE OF EXAM: 04/18/2024 12:52 PM CLINICAL INDICATION: pain. COMPARISON: None TECHNIQUE: The sacroiliac joints were examined in a frontal and lateral and oblique projections. FINDINGS: Mild degeneration of the sacroiliac joints with osteophyte formation. There is no evidence of fracture or dislocation. There is no soft tissue abnormality. No abnormal calcifications are pres ent. Multilevel degenerative changes of the lower spine. IMPRESSION: 1. No acute osseous pathology. 2. Mild degeneration changes of the sacroiliac joints
--- NOTE | 2024-05-10 13:53 | XR ---
Patient: Paulette Sharma Ordering Physician: Unknown, Unknown ID: [id number] Phone, Pager: Phone: N/A Pager: N/A : 1965 Age/Gender: 59Y, F Primary Location: N/A Procedure: XR lumbosacral spi ne min 4V Study Date: 04/09/2024 7:16:00 AM EXAMINATION TYPE: XR lumbosacral spine min 4V DATE OF EXAM: 04/18/2024 12:47 PM CLINICAL INDICATION: Of pain COMPARISON: None TECHNIQUE: XR lumbosacral spine min 4V - Frontal, lateral , bilateral oblique and coned in L5-S1 late ral views of the spine. FINDINGS: No evidence of any acute osseous pathology. No evidence of loss of vertebral body height i s seen. Mild scattered disc space narrowing. Multilevel marginal osteophyte formation throughout the visualized spine. There is facet joint arthropathy throughout the spine. Neural foraminal stenosis wo rse at L2-L3 secondary to retrolisthesis of L2 on L3 and L3 on L4. Anterolisthesis of L4 and L5 grade 1. IMPRESSION: 1. No acute fracture. 2. Moderate multilevel disc degeneration. 3. Grade 1 anterolisthesis of L4 and L5. 4. Retrolisthesis of L2 on L3 with at least moderate neural foraminal stenosis. Consider further eval uation with MRI.
== END | disposition home or self-care (01) ==
LOC: RADXRMAIN 07:02
PROVIDERS: ATTEND Family Medicine
DX: M43.16 Spondylolisthesis, lumbar region (principal); M48.061 Spinal stenosis, lumbar region without neurogenic claudication; M53.3 Sacrococcygeal disorders, not elsewhere classified; M51.36 Other intervertebral disc degeneration, lumbar region; M16.11 Unilateral primary osteoarthritis, right hip
CPT/HCPCS: 72110; 72202

== ENCOUNTER 2024-05-04 08:18 | Day surgery (SDC) | payer MEDICARE ==
[2024-04-28 09:30] VITALS: BMI 23.4
[~2024-05-04 08:18] MED LIST: LIDOCAINE 1% (10MG/ML) FOR IV START INTRADERMA PRN
[2024-05-04 08:55] VITALS: TEMP 97
[2024-05-04] MEDS: LACTATED RINGERS 1,000 ML IV SCH (09:02)
[2024-05-04] MEDS ORDERED: LIDOCAINE 2% (PF) 20 MG/ML 5 ML VIAL ONE (09:03)
[2024-05-04] MEDS ORDERED: PROPOFOL 10 MG/ML 20 ML VIAL IV ONE (09:03)
--- NOTE | 2024-05-04 09:13 | P.GSHP ---
History of Present Illness H&P Date: 05/04/24 Chief Complaint: Epigastric pain, nausea, bloating 59-year-old female here for upper endoscopy. Patient describes epigastric abdominal pain along with bloating. Patient with frequent nausea. Some diarrhea at times. She says her last colonoscopy at [facility] was 2 years ago. She tries antiacids without relief. Mild reflux. Denies rectal bleeding or melena. Past Medical History Past Medical History: Fibromyalgia, GERD/Reflux, Hyperlipidemia, Hypertension Additional Past Medical History / Comment(s): chronic back pain, migraines, vertigo in the past, hiatal hernia, sigmoid polyp-benign. colonoscopy History of Any Multi-Drug Resistant Organisms: None Reported Past Surgical History: No Surgical Hx Reported Additional Past Surgical History / Comment(s): 09/2014 EGD with bx/colonoscopy with bx Past Anesthesia/Blood Transfusion Reactions: No Reported Reaction Additional Past Anesthesia/Blood Transfusion Reaction / Comment(s): no blood transfusion. No Anesthesia Smoking Status: Current every day smoker - Past Family History Mother Family Medical History: CVA/TIA, Hypertension Father Family Medical History: Hyperlipidemia, Hypertension Medications and Allergies Home Medications Medication Instructions Recorded Confirmed Type Simvastatin [Zocor] 20 mg PO HS 09/23/14 04/28/24 History Ezetimibe [Zetia] 10 mg PO DAILY 04/28/24 04/28/24 History Losartan [Cozaar] 25 mg PO DAILY 04/28/24 04/28/24 History Rosuvastatin [Crestor] 20 mg PO HS 04/28/24 04/28/24 History Sertraline [Zoloft] 25 mg PO DAILY 04/28/24 04/28/24 History Allergies Allergy/AdvReac Type Severity Reaction Status Date / Time cephalexin [From Keflex] Allergy Rash/Hives Verified 05/04/24 08:50 clarithromycin [From Biaxin] Allergy Rash/Hives Verified 05/04/24 08:50 sulfamethoxazole Allergy Rash/Hives Verified 05/04/24 08:50 [From Bactrim] trimethoprim [From Bactrim] Allergy Rash/Hives Verified 05/04/24 08:50 Surgical - Exam Vital Signs Temp Pulse Resp BP Pulse Ox 97.0 F L 97 16 147/86 97 05/04/24 08:53 05/04/24 08:53 05/04/24 08:53 05/04/24 08:53 05/04/24 08:53 Physical exam: General: Well-developed, well-nourished HEENT: Normocephalic, sclerae nonicteric Abdomen: Nontender, nondistended Extremities: No edema Neuro: Alert and oriented Assessment and Plan (1) Epigastric pain Narrative/Plan: Will proceed with EGD at this time Current Visit: Yes Status: Acute Code(s): R10.13 - EPIGASTRIC PAIN SNOMED Code(s): 66975651
--- NOTE | 2024-05-04 09:21 | P.PCN ---
Date of Procedure: 05/04/24 Procedure(s) Performed: Preoperative Dx: Epigastric pain, bloating Postoperative Dx: Moderate to large hiatal hernia, mild gastritis Procedure: EGD with Bx Anesthesia: Sedation Endoscopist: Dr. Srinivasan Specimens: Antrum Endoscopic Procedure: The patient was on the endoscopy table in the left decubitus position. The Olympus gastroscope was inserted into the oropharynx and passed under direct visualization to the region of the third portion of the duodenum. From that point the scope was slowly withdrawn inspecting all surfaces carefully. There were no neoplastic inflammatory or polypoid lesions throughout the duodenum. The pylorus was widely patent. The stomach was carefully inspected. There was gastritis present in the prepyloric antral region. A biopsy of the antrum took place to rule out H. pylori. Retroflexion revealed a moderate to large sized hiatal hernia. The diaphragmatic hiatus was present at 38 cm in the GE junction was present at approximately 29 cm. The stomach above the diaphragm was free of any significant inflammatory changes. The esophagus was then carefully examined. There were no neoplastic inflammatory or polypoid lesions throughout the visualized esophagus. The patient was then taken to the recovery room in stable condition per anesthesia guidelines. Recommendations: Await biopsy results. Patient may be a candidate for operative repair of this hiatal hernia given her complaints. Will consider referral for that reason.
[2024-05-04 09:43] VITALS: BP 114/65; PULSE 54; RESP 16
== END 2024-05-04 09:53 | disposition home or self-care (01) ==
LOC: ORWHC2ENDO 08:18
PROVIDERS: ATTEND Surgery
DX: K31.9 Disease of stomach and duodenum, unspecified (principal); K29.70 Gastritis, unspecified, without bleeding; K44.9 Diaphragmatic hernia without obstruction or gangrene; K21.9 Gastro-esophageal reflux disease without esophagitis; M79.7 Fibromyalgia; I10 Essential (primary) hypertension; E78.5 Hyperlipidemia, unspecified; G89.29 Other chronic pain; G43.909 Migraine, unspecified, not intractable, without status migrainosus; F17.200 Nicotine dependence, unspecified, uncomplicated; Z86.010 Personal history of colon polyps; Z88.1 Allergy status to other antibiotic agents; Z88.2 Allergy status to sulfonamides; Z88.3 Allergy status to other anti-infective agents; Z79.899 Other long term (current) drug therapy
CPT/HCPCS: 43239; 88305

== ENCOUNTER 2024-05-21 05:51 | Day surgery (SDC) | payer MEDICARE ==
[2024-05-21] MEDS ORDERED: LIDOCAINE 1% (10MG/ML) FOR IV START INTRADERMA PRN (06:40)
[2024-05-21] MEDS: DEXAMETHASONE SOD PHOSPHATE 4 MG/ML 1 ML VIAL IV ONE (07:05)
[2024-05-21] MEDS: ONDANSETRON 4 MG/2 ML VIAL IVP ONE (07:05)
[2024-05-21] MEDS: LACTATED RINGERS 1,000 ML IV SCH ×2 (07:06→11:11)
[2024-05-21] MEDS: IPRATROPIUM-ALBUTEROL 3 ML NEB INHALATION PRN (07:10)
[2024-05-21] MEDS: FAMOTIDINE 20 MG/2 ML VIAL IV STA (07:12)
[2024-05-21] MEDS: IV FLUID CONTINUATION 1,000 ML IV ONE ×2 (07:19→08:53)
[2024-05-21 07:22] LABS: Basophils # (A) 0.1 k/uL (0-0.2); Basophils % (A) 1 %; Eosinophils # (A) 0.3 k/uL (0-0.7); Eosinophils % (A) 3 %; HCT 38.8 % (34.0-46.0); HGB 12.3 gm/dL (11.4-16.0); Lymphocytes % (A) 30 %; MCH 27.8 pg (25.0-35.0); MCHC 31.7 g/dL (31.0-37.0); MCV 87.8 fL (80.0-100.0); Mean Platelet Volume 6.5; Monocytes # (A) 0.7 k/uL (0-1.0); Monocytes % (A) 7 %; Neutrophils # (A) 5.7 k/uL (1.3-7.7); Neutrophils % (A) 57 %; Platelet Count 416 k/uL (150-450); RBC 4.42 m/uL (3.80-5.40); RDW 13.6 % (11.5-15.5); WBC 10.1 k/uL (3.8-10.6)
[2024-05-21] MEDS: HEPARIN SODIUM,PORCINE 5,000 UNIT/ML 1 ML VIAL SQ STA (07:29)
[2024-05-21] MEDS ORDERED: NEOSTIGMINE 1 MG/ML 10 ML VIAL ONE (07:34)
[2024-05-21] MEDS ORDERED: MIDAZOLAM 2 MG/2 ML VIAL ONE (07:34)
[2024-05-21] MEDS ORDERED: SUCCINYLCHOLINE CHLORIDE 200 MG/10 ML VIAL IV ONE (07:34)
[2024-05-21] MEDS ORDERED: PROPOFOL 10 MG/ML 20 ML VIAL IV ONE (07:34)
[2024-05-21] MEDS ORDERED: fentaNYL (PF) 50 MCG/ML 2 ML AMP ONE (07:34)
[2024-05-21] MEDS ORDERED: PHENYLEPHRINE 10 MG/ML VIAL ONE (07:34)
[2024-05-21] MEDS ORDERED: GLYCOPYRROLATE 0.2 MG/ML 2 ML VIAL ONE (07:34)
[2024-05-21 07:48] LABS: ALT 15 U/L (4-34); AST 25 U/L (14-36); African American GFR (CKD) >90 (>60 ml/min/1.73 sqM); Alkaline Phosphatase 64 U/L (38-126); Anion Gap 6 mmol/L; Blood Urea Nitrogen 14 mg/dL (7-17); Calcium 9.4 mg/dL (8.4-10.2); Carbon Dioxide 25 mmol/L (22-30); Chloride 108 mmol/L (98-107); Glucose 96 mg/dL (74-99); Non-African American GFR(CKD) 85 (>60 ml/min/1.73 sqM); Potassium 4.3 mmol/L (3.5-5.1); Sodium 139 mmol/L (137-145); Total Bilirubin 0.3 mg/dL (0.2-1.3); Total Protein 6.8 g/dL (6.3-8.2)
[2024-05-21] MEDS: LIDOCAINE 1%-EPI 1:100,000 20 ML VIAL SQ ONE (07:58)
[2024-05-21] MEDS: LACTATED RINGERS 1,000 ML IV ONE (08:28)
--- NOTE | 2024-05-21 09:04 | P.OP ---
Date of Procedure: 05/21/24 Preoperative Diagnosis: Diaphragmatic hernia Gerdtraumatic hernia GERD Postoperative Diagnosis: Diaphragmatic hernia GERD Procedure(s) Performed: Laparoscopic Tonya fundoplication Anesthesia: SHELDON Surgeon: Norm Kumar Estimated Blood Loss (ml): 5 Pathology: none sent Condition: stable Disposition: PACU Description of Procedure: Hollis the patient was placed on the operating table in the supine position. The patient received general anesthesia. And was placed in dorsal lithotomy position. The patient was prepped and draped in the usual sterile fashion. The skin incision sites were anesthetized with 1% local Xylocaine. The skin was incised in the left periumbilical area and then using a blade less 5 mm trocar under direct visualization panel cavity was entered. After adequate insufflation the laparoscope was then placed into the peritoneal cavity. Next a 5 mm trochars placed in the right epigastric position. Another 5 millimeter trocar the right lateral position. Another 5 millimeter trocar in the left lateral position a 5 mm trocar is placed in the left epigastric position. And then the initial 5 mm trocar was exchanged for a 10 mm trocar. The left lateral lobe liver was retracted. The hernia was seen. The crural defect was then dissected using the Harmonic scissors device. A 360 crural dissection was performed the esophagus stomach was reduced back into the peritoneal Cavity. The crural defect was then closed using 2-0 Ethibond suture. Next the fundus of the stomach was mobilized using the Hastings scissors device. and then a 58- Pashto bougie dilator was placed oropharynx passed into the esophagus and stomach the fundal plication wrap was then performed by grasping the fundus posteriorly and bringing it around the esophagus and stomach fundoplication was then performed using 2-0 Ethibond suture. Care was taken that the fundal location rested over top of the intra-abdominal esophagus. There was no injury seen to the stomach or esophagus. The dilator was then withdrawn. The abdomen was irrigated there is no bleeding seen. The trochars were then withdrawn and then skin incision sites were closed using 3-0 Monocryl suture Steri-Strips are applied. Patient thought procedure well and sent to recovery room in stable condition.
[2024-05-21] MEDS ORDERED: NALOXONE 0.4 MG/ML 1 ML VIAL IV PRN (09:06)
[2024-05-21] MEDS ORDERED: traMADol 50 MG TAB PO PRN (09:06)
[2024-05-21] MEDS ORDERED: HYDROmorphone 0.5 MG/0.5 ML SYRINGE IVP PRN (09:06)
[2024-05-21] MEDS ORDERED: ONDANSETRON 4 MG/2 ML VIAL IVP PRN (09:06)
[2024-05-21] MEDS ORDERED: ACETAMINOPHEN TAB 325 MG TAB PO PRN (09:06)
[2024-05-21] MEDS: HYDROmorphone 0.5 MG/0.5 ML SYRINGE IVP PRN (09:06)
[2024-05-21] MEDS: hydrALAZINE HCL 20 MG/ML 1 ML VIAL IVP PRN (09:48)
[2024-05-21] MEDS: droPERidol 5 MG/2 ML VIAL IVP ONE (11:11)
[2024-05-21] MEDS: HYDROmorphone 1 MG/ML 1 ML SYRINGE IVP PRN (11:58)
[2024-05-21] MEDS: KETOROLAC 15 MG/ML 1 ML VIAL IVP SCH (11:58)
[2024-05-21] MEDS: HYDROcodone/APAP 5-325MG 1 EACH TAB PO PRN (18:09)
[2024-05-22 07:30] VITALS: BP 158/74; PULSE 62; RESP 16; TEMP 97.8
[2024-05-22] MEDS: ENOXAPARIN 40 MG/0.4 ML SYRINGE SQ SCH (08:45)
--- NOTE | 2024-05-22 09:36 | P.DS ---
Providers Date of admission: 05/21/2024 Expected date of discharge: 05/22/24 Attending physician: Norm Kumar Consults: 05/21/24 09:06 Consult Physician Routine Consulting Provider: Tavares Desir Consult Reason/Comments: med manage Do you want consulting provider notified?: Yes, Notify in am Primary care physician: [facility] Hospital Course: This a 59-year-old female who underwent laparoscopic Tonya formication. Patient on postop day 1 is doing well. She is tolerating diet. She will be discharged home today. Procedures: Laparoscopic Tonya fundoplication Patient Condition at Discharge: Good Plan - Discharge Summary Discharge Rx Participant: No New Discharge Prescriptions: New Docusate [Colace] 100 mg PO BID #20 capsule Ibuprofen [Motrin] 600 mg PO Q6HR PRN #40 tab PRN Reason: Pain Acetaminophen Tab [Tylenol] 650 mg PO Q6H #30 tab oxyCODONE HCL [OxyIR] 5 mg PO Q6H PRN 3 Days #10 tab PRN Reason: Pain No Action Ezetimibe [Zetia] 10 mg PO DAILY Losartan [Cozaar] 25 mg PO DAILY Famotidine [Pepcid] 20 mg PO BID Cyanocobalamin [Vitamin B-12] 500 mcg PO DAILY Sertraline [Zoloft] 25 mg PO DAILY Rosuvastatin [Crestor] 20 mg PO HS Discharge Medication List Ezetimibe [Zetia] 10 mg PO DAILY 04/28/24 [History] Losartan [Cozaar] 25 mg PO DAILY 04/28/24 [History] Rosuvastatin [Crestor] 20 mg PO HS 04/28/24 [History] Sertraline [Zoloft] 25 mg PO DAILY 04/28/24 [History] Famotidine [Pepcid] 20 mg PO BID 05/19/24 [History] Cyanocobalamin [Vitamin B-12] 500 mcg PO DAILY 05/20/24 [History] Acetaminophen Tab [Tylenol] 650 mg PO Q6H #30 tab 05/22/24 [Rx] Docusate [Colace] 100 mg PO BID #20 capsule 05/22/24 [Rx] Ibuprofen [Motrin] 600 mg PO Q6HR PRN #40 tab 05/22/24 [Rx] oxyCODONE HCL [OxyIR] 5 mg PO Q6H PRN 3 Days #10 tab 05/22/24 [Rx] Follow up Appointment(s)/Referral(s): Norm Kumar MD [STAFF PHYSICIAN] - 05/27/24 2:40 pm
== END 2024-05-22 11:07 | disposition home or self-care (01) ==
LOC: OR 05:51 → 5NMEDONC 09:04 → OR 05-22 11:07
PROVIDERS: ATTEND Surgery
DX: K44.9 Diaphragmatic hernia without obstruction or gangrene (principal); K21.00 Gastro-esophageal reflux disease with esophagitis, without bleeding; E78.5 Hyperlipidemia, unspecified; I10 Essential (primary) hypertension; M79.7 Fibromyalgia; F17.200 Nicotine dependence, unspecified, uncomplicated; Z79.899 Other long term (current) drug therapy; Z88.1 Allergy status to other antibiotic agents; Z88.2 Allergy status to sulfonamides
CPT/HCPCS: 80053; 85025

== ENCOUNTER → 2024-06-08 | Outpatient (CLI) | payer MEDICARE ==
--- NOTE | 2024-06-08 11:06 | FL ---
EXAMINATION TYPE: FL UGI air w esophagus DATE OF EXAM: 06/08/2024 COMPARISON: NONE HISTORY: Vomiting TECHNIQUE: A single contrast UGI study is performed. A total of 80 seconds of fluoroscopic time was utilized during procedure and 22 images obtained. Total dose area product (DAP) in uGy*m?, mGy*cm? ( or similar): Not provided. FINDINGS: [employer] image of the abdomen shows no gross abnormality. The patient was able to tolerate a couple swallows of contrast with the visualized portion of the eso phagus demonstrating no intraluminal filling defect. There was delay at the level of the GE junction with the contrast refluxing up into the mid and proximal esophagus. The patient could not tolerate ad ditional imaging. The patient did experience an episode of vomiting. Evaluation the stomach was not p ossible. Obstructive pattern not excluded at the GE junction. IMPRESSION: 1. Limited exam as the patient could only tolerate a couple swallows of contrast before vomiting. The re was a significant delay at the level of the GE junction. Sitter EGD to exclude abnormality of the GE junction. [facility], , 06/08/2024 11:03 AM
== END | disposition home or self-care (01) ==
LOC: RADFLMAIN 09:23
PROVIDERS: ATTEND Surgery
DX: K21.00 Gastro-esophageal reflux disease with esophagitis, without bleeding (principal)
CPT/HCPCS: 74246

== ENCOUNTER → 2024-06-10 | Day surgery (SDC) | payer MEDICARE ==
[~2024-06-10] MED LIST changes: -LIDOCAINE 1% (10MG/ML) FOR IV START INTRADERMA PRN; +LIDOCAINE 2% (PF) 20 MG/ML 5 ML VIAL ONE; +PROPOFOL 10 MG/ML 20 ML VIAL IV ONE
[2024-06-10] MEDS: IV FLUID CONTINUATION 1,000 ML IV ONE (07:55)
[2024-06-10 08:03] VITALS: TEMP 97.4
[2024-06-10] MEDS: LACTATED RINGERS 1,000 ML IV SCH (08:11)
--- NOTE | 2024-06-10 09:00 | P.GSHP ---
History of Present Illness H&P Date: 06/10/24 Chief Complaint: Dysphagia This a 59-year-old female who has complaints of dysphagia. Patient notes today for EGD and possible balloon dilatation. Past Medical History Past Medical History: Fibromyalgia, GERD/Reflux, Hyperlipidemia, Hypertension Additional Past Medical History / Comment(s): chronic back pain, migraines, vertigo in the past, hiatal hernia - repaired 2 weeks ago, pt. states her appendix is on left side of abdomen not on the right, has been unable to keep anything down since hiatal hernia repair History of Any Multi-Drug Resistant Organisms: None Reported Past Surgical History: Hernia Repair Additional Past Surgical History / Comment(s): 09/2014-EGD with bx/colonoscopy with bx, recent EGD, hiatal hernia repair 2 weeks ago Past Anesthesia/Blood Transfusion Reactions: No Reported Reaction Additional Past Anesthesia/Blood Transfusion Reaction / Comment(s): No An esthesia Smoking Status: Current every day smoker - Past Family History Mother Family Medical History: CVA/TIA, Hypertension Father Family Medical History: Hyperlipidemia, Hypertension Medications and Allergies Home Medications Medication Instructions Recorded Confirmed Type Ezetimibe [Zetia] 10 mg PO DAILY 04/28/24 06/10/24 History Losartan [Cozaar] 25 mg PO DAILY 04/28/24 06/10/24 History Rosuvastatin [Crestor] 20 mg PO HS 04/28/24 06/10/24 History Sertraline [Zoloft] 25 mg PO DAILY 04/28/24 06/10/24 History Famotidine [Pepcid] 20 mg PO BID 05/19/24 06/10/24 History Allergies Allergy/AdvReac Type Severity Reaction Status Date / Time cephalexin [From Keflex] Allergy Rash/Hives Verified 06/10/24 08:04 clarithromycin [From Biaxin] Allergy Rash/Hives Verified 06/10/24 08:04 sulfamethoxazole Allergy Rash/Hives Verified 06/10/24 08:04 [From Bactrim] trimethoprim [From Bactrim] Allergy Rash/Hives Verified 06/10/24 08:04 Surgical - Exam Vital Signs Temp Pulse Resp BP Pulse Ox 97.4 F L 70 16 108/61 100 06/10/24 08:01 06/10/24 08:01 06/10/24 08:01 06/10/24 08:01 06/10/24 08:01 - General well developed, well nourished, no distress - Eyes PERRL - ENT normal pinna - Neck no masses - Respiratory normal expansion - Cardiovascular Rhythm: regular - Abdomen Abdomen: soft, non tender Assessment and Plan Assessment: Dysphagia. Will perform EGD with possible balloon dilatation.
--- NOTE | 2024-06-10 09:12 | P.OP ---
Date of Procedure: 06/10/24 Preoperative Diagnosis: Dysphagia a Postoperative Diagnosis: GE junction stricture Dysphagia Procedure(s) Performed: EGD with balloon dilatation Anesthesia: MAC Surgeon: Norm Kumar Pathology: none sent Condition: stable Disposition: PACU Description of Procedure: The patient was placed on the endoscopy table in the lateral position. She received IV sedation. The gas was placed oropharynx passed in the esophagus into the stomach. Scope was placed through the pylorus. The first second portion of duodenum appeared normal. Scope was then brought back to the stomach and the stomach are normal. At the GE junction there appeared to be evidence of a possible GE junction stricture. It was unclear if the wrap had displaced from around the GE junction. The 20 mm balloon was placed in the GE junction and the balloon was expanded. There is no injury to the stomach or esophagus seen. The balloon was then deflated. The scope easily traversed through the GE junction. Scope was then brought back and removed from the patient.
[2024-06-10 09:43] VITALS: BP 118/65; PULSE 55; RESP 16
== END ==
LOC: ORWHC2ENDO 07:30
PROVIDERS: ATTEND Surgery
CPT/HCPCS: 43249

== ENCOUNTER 2024-06-28 11:49 | Day surgery (SDC) | payer MEDICARE ==
[2024-06-28 12:24] VITALS: TEMP 97
[2024-06-28] MEDS: LACTATED RINGERS 1,000 ML IV SCH (12:31)
[2024-06-28] MEDS: IV FLUID CONTINUATION 1,000 ML IV ONE (12:33)
[2024-06-28] MEDS ORDERED: LIDOCAINE 1% INJ 10MG/ML (20 ML MDV) ONE (12:51)
[2024-06-28] MEDS ORDERED: PROPOFOL 10 MG/ML 20 ML VIAL IV ONE (12:51)
--- NOTE | 2024-06-28 13:10 | P.OP ---
Date of Procedure: 06/28/24 Preoperative Diagnosis: Dysphagia Postoperative Diagnosis: Dysphagia Procedure(s) Performed: EGD with balloon dilatation of GE junction Anesthesia: SHELDON Surgeon: Norm Kumar Pathology: none sent Condition: stable Disposition: PACU Description of Procedure: Patient was placed on the endoscopy table in the lateral position. She received IV sedation. The gastric was placed oropharynx passed in the esophagus and the stomach. Scope was put through the pylorus. The first second portion duodenum appeared normal. Scope Cinobac in the antrum appeared normal. Scope was retroflexed remainder the stomach appeared normal. Patient appears fundoplication wrap. The wrap appeared to be just below the GE junction. There was a slight stricture of the GE junction. This point the 20 mm balloon was placed across the GE junction. This was held in position for 3 minutes. The balloon was inflated. There was no evidence of any injury to the stomach or esophagus. The gastroscope and the balloon were withdrawn. Patient tolerated well. She was sent to recovery room in stable condition.
[2024-06-28 13:32] VITALS: BP 109/68; PULSE 63; RESP 16
== END 2024-06-28 13:50 | disposition home or self-care (01) ==
LOC: ORWHC2ENDO 11:49
PROVIDERS: ATTEND Surgery
DX: R13.10 Dysphagia, unspecified (principal); I10 Essential (primary) hypertension; E78.5 Hyperlipidemia, unspecified; F17.210 Nicotine dependence, cigarettes, uncomplicated; F41.9 Anxiety disorder, unspecified; K21.9 Gastro-esophageal reflux disease without esophagitis; G43.909 Migraine, unspecified, not intractable, without status migrainosus; M79.7 Fibromyalgia; Z88.1 Allergy status to other antibiotic agents; Z88.2 Allergy status to sulfonamides; Z79.899 Other long term (current) drug therapy
CPT/HCPCS: 43249; J2003; J2704; C1726